=== PATIENT | female | born 1990 | race Caucasian/White ===

== ENCOUNTER 2017-08-17 20:41 | Emergency (ER) | payer MEDICARE ==
[2017-08-17 21:07] VITALS: BP 130/65
--- NOTE | 2017-08-17 21:23 | UC ---
UC General HPI - HPI Summary HPI Summary: BUMP TO BOTTOM OF RIGHT FOOT. INCREASING FOR ABOUT 1 YEAR. HURTS TO WALK. - History of Current Complaint Hx Obtained From: Patient Hx Last Menstrual Period: 03/10/17 Onset/Duration: Gradual Onset Timing: Constant Pain Intensity: 8 Aggravating: WALKING Alleviating: NOTHING Associated Signs & Symptoms: Negative: Fever <Sara Alan - Last Filed: 08/17/17 21:39> <Debbi Merida - Last Filed: 08/18/17 21:08> - History of Current Complaint Stated Complaint: RIGHT FOOT PAIN Time Seen by Provider: 08/17/17 21:05 - Allergy/Home Medications Allergies/Adverse Reactions: Allergies Allergy/AdvReac Type Severity Reaction Status Date / Time No Known Allergies Allergy Verified 08/17/17 21:06 Home Medications: Home Medications Acetaminophen TAB* [Tylenol TAB*] 650 mg PO Q4H PRN 08/17/17 [History Confirmed 08/17/17] PMH/Surg Hx/FS Hx/Imm Hx Previously Healthy: Yes - Surgical History Surgical History: None - Family History Known Family History: Positive: Cardiac Disease, Hypertension, Diabetes - Social History Lives: With Family Alcohol Use: Daily Alcohol Amount: had alchol prior to visit Substance Use Type: None Smoking Status (MU): Heavy Every Day Tobacco Smoker <Sara Alan - Last Filed: 08/17/17 21:39> Review of Systems Constitutional: Negative Is Patient Immunocompromised?: No All Other Systems Reviewed And Are Negative: Yes <Sara Alan - Last Filed: 08/17/17 21:39> Physical Exam Triage Information Reviewed: Yes Appearance: Well-Appearing Vital Signs: Initial Vital Signs Temp 98.8 F 08/17/17 21:02 Pulse 65 08/17/17 21:02 Resp 16 08/17/17 21:02 BP 130/65 08/17/17 21:02 Pulse Ox 100 08/17/17 21:02 Vital Signs Reviewed: Yes Eyes: Positive: Conjunctiva Clear ENT: Positive: Pharynx normal, TMs normal. Negative: Nasal congestion, Nasal drainage Neck: Positive: Supple, Nontender, No Lymphadenopathy Respiratory: Positive: Lungs clear, Normal breath sounds Cardiovascular: Positive: RRR, No Murmur Abdomen Description: Positive: Nontender, No Organomegaly, Soft Bowel Sounds: Positive: Present Musculoskeletal: Positive: Other: - Both feet: callous to medial aspects of great toes, mtp joints and balls of feet R>L. Ball or R foot is tender. No erythema, fluctuance or bony tenderness. Feett have full s/v/m function. <Sara Alan - Last Filed: 08/17/17 21:39> Vital Signs: Initial Vital Signs Temp 98.8 F 08/17/17 21:02 Pulse 65 08/17/17 21:02 Resp 16 08/17/17 21:02 BP 130/65 08/17/17 21:02 Pulse Ox 100 08/17/17 21:02 <Debbi Merida - Last Filed: 08/18/17 21:08> Course/Dx - Course Course Of Treatment: callous both feet. extensive to balls R>L. will rfer to podiatry. no infection or concern for bony pathology. - Differential Dx - Multi-Symptom Provider Diagnoses: Callous both feety. <Sraa Alan - Last Filed: 08/17/17 21:39> Discharge - Sign-Out/Discharge Documenting (check all that apply): Discharge - Billing Disposition and Condition Condition: STABLE Disposition: HOME <Sara Alan - Last Filed: 08/17/17 21:39> - Billing Disposition and Condition Condition: STABLE Disposition: HOME <Debbi Merida - Last Filed: 08/18/17 21:08> - Discharge Plan Condition: Stable Disposition: HOME Referrals: JANEL Tesfaye [Primary Care Provider] - If Needed Jacques Dawson DPM [Doctor of Podiatric Medicine] - As Soon As Possible Additional Instructions: DIAGNOSIS: EXTENSIVE CALLOUS BOTH FEET(RIGHT GREATER THAN LEFT) CALL PODIATRY IN THE AM FOR NEXT AVAILABLE APPOINTMENT. FOLLOW UP IMMEDIATELY IF AREAS BECOME RED, HOT OR IF YOU HAVE A FEVER. Attestation Statement User Type: Provider - I was available for consult. This patient was seen by the RIO. The patient was not presented to, seen by, or examined by me. Shanej <Debbi Merida - Last Filed: 08/18/17 21:08>
== END 2017-08-17 21:39 | disposition home or self-care (01) ==
LOC: UCCORT 20:41
DX: L84 Corns and callosities (principal)
CPT/HCPCS: 99211; G0463